=== PATIENT | female | born 1965 | race Caucasian/White ===

== ENCOUNTER 2018-05-07 23:57 | Inpatient (IN) | payer OTHER, BC ==
[~2018-05-07] VITALS: Ht 152.4 cm; Wt 100.8 kg
--- NOTE | ~2018-05-07 | HC ---
[facility] [place] [address] CONSULTATION Name: JAIDA DUMAS Kyle Room #: 418-P ADM IN M.R.#: [id number] Admission: 05/08/18 Attend Phys: Yasir Anaya MD Discharge: Date of : 61 Report #: [id number] THIS REPORT FOR: //name// CC: Yasir Koo DATE OF SERVICE: 05/10/2018 CHIEF COMPLAINT: Ulcerations, bilateral hips and history of calciphylaxis. HISTORY OF PRESENT ILLNESS: This is a 53-year-old female patient with a history of end-stage renal disease, who undergoes peritoneal dialysis. She has a history of ulcerations on bilateral lower extremities as well as both of her hips and the lower extremity ulcers have healed. 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 She has received topical care and some debridement. She has been receiving sodium thiosulfate 3 days per week. Overall, things have begun to improve, although her hips have been very slow to respond. The patient is unaware as to whether her parathyroid hormone level has been evaluated or whether she has been considered for parathyroidectomy at this time. The patient's reason for admission, has been nausea, vomiting and abdominal pain. She has not been to [facility] before but was brought here as this was the closest facility. ALLERGIES: Unknown. PAST MEDICAL HISTORY: Positive history of acute respiratory failure and/or colitis with C. difficile, pulmonary candidiasis, anemia, dialysis and type 2 diabetes mellitus. There is a reported history of antiphospholipid antibody syndrome, although the patient states she is unaware of this and that her ulcers have been specifically caused by calciphylaxis. SOCIAL HISTORY: Negative for alcohol or tobacco use. FAMILY HISTORY: Noncontributory. REVIEW OF SYSTEMS: CONSTITUTIONAL: The patient denies fever, chills or weight loss. NEUROLOGICAL: The patient denies focal weakness, numbness or weakness. EYES: The patient denies visual changes, redness or drainage. ENT: The patient denies earache, nasal drainage, sore throat. CARDIOVASCULAR: The patient denies chest pain, palpitation or diaphoresis. PULMONARY: The patient denies cough or shortness of breath. GASTROINTESTINAL: The patient has previously complained of nausea and vomiting, which is mostly improved at this time. She denies abdominal pain. ORTHOPEDIC: The patient complains of ulcerations on both hip areas as well as [facility] [address] [place] [address] CONSULTATION Name: JAIDA DUMAS Kyle Room #: 418-P [facility].#: [id number] Admission: 05/08/18 Attend Phys: Yasir Anaya MD Discharge: Date of : 61 Report #: [id number] previous ulcerations on her both lower extremities bilaterally. Other systems in a 14-point review of systems are negative. MEDICATIONS: Reviewed in her MAR. PHYSICAL EXAMINATION: VITAL SIGNS: At this time include pulse rate 88, respiration of 20, blood pressure 144/70 and temperature 98.4. GENERAL: This is a chronically ill-appearing female patient who appears to be in minimal distress. HEENT: Head is normocephalic and atraumatic. Nose and throat clear. NECK: Supple. LUNGS: Clear. HEART: . ABDOMEN: Bowel sounds present. Abdomen is obese, soft and nontender. EXTREMITIES: Examination of the lower extremities demonstrates diminished but palpable distal pulses. She has trace edema bilaterally. She has some scarring from previous ulcerations on both lower legs. She has ulcerations to both hip areas. They appear to have rolled edges, some granulation tissue is noted as well as some yellow fibrinous material. There is a little bit of undermining on the wound margins bilaterally. They are not overtly infected at this time. The periwound is slightly erythematous, more of inflammation than an infectious appearance. NEUROLOGICAL: The patient is alert and oriented and appropriate. Moving all 4 extremities spontaneously. LABORATORY DATA: Includes sodium 141, potassium 3.9, chloride 101, CO2 31, BUN 21, creatinine 4.0 and glucose 100. Calcium is 8.7, phosphorus is 5.3, albumin is 1.7 and total protein 8.5. Albumin is low at 1.7. White blood cell count 11.1 and hemoglobin 10.0. CLINICAL IMPRESSION: 1. Chronic ulceration to bilateral hips with a reported history of calciphylaxis per the patient's report, this was biopsy proven, the records are not available for my review at this time. 2. End-stage renal, requiring dialysis. 3. Anemia of chronic disease. 4. Severe protein-calorie malnutrition. RECOMMENDATIONS: At this point in time, in general, ulcerations due to calciphylaxis are best treated with topical silver based materials. It is also recommended that the debridement be avoided if at all possible due to pathergy associated with this condition. I think we will use topical silver alginate followed by ABD type secondary dressing to be changed on a daily basis and as needed. I would recommend that we continue with sodium thiosulfate as this has [facility] [address] [place] [address] CONSULTATION Name: JAIDA DUMAS Room #: 418-P ADM IN M.R.#: [id number] Admission: 05/08/18 Attend Phys: Yasir Anaya MD Discharge: Date of : 61 Report #: [id number] been shown to be of benefit in calciphylaxis. We will also check a parathyroid hormone level. If it is markedly elevated, then parathyroidectomy could be considered treatment option for the calciphylaxis as well. We will recommend ongoing nutritional support to maximize wound healing. All questions have been answered. I appreciate being asked to see her in consultation. By: 04 Berhane Mccartney MD /nt
[2018-05-07 23:58] VITALS: BP 167/91
[2018-05-08 00:19] LABS: HEMATOCRIT 30.6 % (37.0-47.0); MCHC 32.6 g/dL (28.0-37.0); RBC 3.22 mil/uL (4.20-5.00); RDW 18.9 % (10.5-14.5); WBC 11.1 thou/uL (4.0-11.0)
[2018-05-08 00:40] LABS: ANION GAP 11 mmol/L (7-16); BUN 14 mg/dL (7-18); CALCIUM 9.7 mg/dL (8.5-10.1); CHLORIDE 96 mmol/L (98-107); CO2 28 mmol/L (21-32); GLUCOSE 149 mg/dL (74-106); POTASSIUM 4.8 mmol/L (3.5-5.1); SODIUM 135 mmol/L (136-145)
[2018-05-08 00:45] LABS: ALBUMIN 2.3 g/dL (3.4-5.0); LIPASE 90 U/L (73-393); SGOT 30 U/L (15-37); SGPT 10 U/L (30-65); TOTAL BILIRUBIN 1.7 mg/dL (<0.1-1.0); TOTAL PROTEIN 8.5 g/dL (6.4-8.2); TROPONIN-I <0.06 ng/mL (<0.06)
[2018-05-08 02:36] LABS: INR 1.2; PROTIME 12.3 Seconds (9.3-11.4)
[2018-05-08 04:27] LABS: BF NUCLEATED CELLS 210; BF RBC 3503
[2018-05-08 04:28] LABS: CLARITY CLEAR; COLOR YELLOW; TOTAL VOLUME 40 mL
[2018-05-08 04:56] LABS: BF MACROPHAGE 31; BF NEUTROPHILS 13; SOURCE PERITONEAL
--- NOTE | 2018-05-08 08:47 | EKG ---
[address] [address] ELECTROCARDIOGRAM REPORT Name: PITERJAIDA C Room #: 170-6 ADM IN M.R.#: [id number] Admission: 05/08/18 Attend Phys: Yasir Anaya MD Discharge: Date of : 61 Report #: [id number] THIS REPORT FOR: //name// [facility] ED Test Date: 2018-05-08 Test Time: 00:32:29 Pat Name: JAIDA DUMAS Department: Room: 170 Gender: F [employer] Manager: SHANIQUE : 1965 Requested By: Rocio Conde Order Number: [id number] MD: Daniel Fuller Measurements Intervals [place]cles Rate: 85 P: 39 IN: 136 QRS: 97 QRSD: 94 T: 71 QT: 429 QTc: 511 Interpretive Statements Sinus rhythm Borderline right axis deviation Borderline low voltage, extremity leads No previous ECG available for comparison Electronically Signed On 05-08-2018 8:47:06 SERVER SYSTEMS ADMINISTRATOR by Daniel Fuller [email or web address] <ELECTRONICALLY SIGNED> By: Daniel Fuller MD 05/08/18 0847 0032 003 Daniel Fuller MD /LAURA
[2018-05-08 11:22] VITALS: BP 125/44
[2018-05-08 11:38] VITALS: BP 125/44
[2018-05-08] MEDS ORDERED: AMBIEN 5 MG TABL5 M1 PO (14:36)
[2018-05-08] MEDS ORDERED: TRAMADOL 50 MG50 MG PO (14:37)
[2018-05-08] MEDS ORDERED: ALBUTEROL2.5 MG/31 INH (14:37)
[2018-05-08] MEDS ORDERED: HYDROXYZINE HCL25 M1 PO (14:38)
[2018-05-08] MEDS ORDERED: MAPAP325 MG PO (14:45)
[2018-05-08] MEDS ORDERED: REQUIP2 MG PO (14:50)
[2018-05-08] MEDS ORDERED: ONDANSETRON HCL4 M2 PO (14:50)
[2018-05-08] MEDS ORDERED: REMERON15 MG PO (14:51)
[2018-05-08] MEDS ORDERED: PROTONIX40 M1 PO (14:51)
[2018-05-08] MEDS ORDERED: RENVELA800 MG PO (14:53)
[2018-05-08] MEDS ORDERED: ANTACID650 MG PO (14:53)
[2018-05-08] MEDS ORDERED: VITAMINC500 PO (14:54)
[2018-05-08] MEDS ORDERED: ZINC SULFATE220 MG PO (14:54)
[2018-05-08] MEDS ORDERED: TRAZODONE HCL50 MG PO (14:54)
[2018-05-08] MEDS ORDERED: HUMALOG100 UNIT/1 SUBQ (14:58)
[2018-05-08] MEDS ORDERED: CARVEDILOL3.125 MG PO (14:59)
[2018-05-08] MEDS ORDERED: ARANESP100 MCG/0. SUBQ (14:59)
[2018-05-08] MEDS ORDERED: BUSPIRONE HCL10 MG PO (14:59)
[2018-05-08] MEDS ORDERED: MELATONIN3 MG PO (15:00)
[2018-05-08 18:34] VITALS: BP 116/62
[2018-05-08] MEDS ORDERED: ACIDOPHILUS1 EAC4 PO (19:27)
[2018-05-08 20:00] VITALS: BP 104/19
[2018-05-09 00:40] VITALS: BP 79/25
[2018-05-09 01:00] VITALS: BP 80/40
[2018-05-09 04:10] VITALS: BP 169/82
[2018-05-09 04:13] VITALS: BP 77/13
[2018-05-09 07:15] VITALS: BP 116/18
[2018-05-09 11:35] LABS: ALBUMIN 1.7 g/dL (3.4-5.0); CALCIUM 8.7 mg/dL (8.5-10.1); PHOSPHORUS 5.3 mg/dL (2.5-4.9); POTASSIUM 3.9 mmol/L (3.5-5.1)
[2018-05-09 22:14] VITALS: BP 136/54
[2018-05-09 23:07] LABS: HAV IgM AB (ANTI-HAV IgM) Negative (Negative); HEPATITIS B SURFACE AG Negative (Negative); HEPATITIS C VIRUS AB 0.3 (0.0-0.9)
[2018-05-10 05:32] VITALS: BP 126/57
[2018-05-10 07:17] VITALS: BP 137/59
[2018-05-10 16:00] VITALS: BP 145/70
[2018-05-10 21:41] VITALS: BP 144/78
[2018-05-11 07:10] VITALS: BP 125/58
[2018-05-11 08:29] LABS: CALCIUM 8.6 mg/dL (8.5-10.1); CREATININE 3.7 mg/dL (0.6-1.0); PHOSPHORUS 4.3 mg/dL (2.5-4.9)
[2018-05-11 15:30] VITALS: BP 125/44
[2018-05-11 20:41] VITALS: BP 146/72
[2018-05-12 04:30] VITALS: BP 120/58
[2018-05-12 05:54] LABS: ALBUMIN 1.5 g/dL (3.4-5.0); CALCIUM 8.7 mg/dL (8.5-10.1); PHOSPHORUS 3.2 mg/dL (2.5-4.9); POTASSIUM 4.3 mmol/L (3.5-5.1)
[2018-05-12 05:56] LABS: CREATININE 2.9 mg/dL (0.6-1.0)
[2018-05-12 08:40] VITALS: BP 124/64
[2018-05-12 08:53] LABS: ABSOLUTE NEUTROPHILS 5.8 thou/uL (1.4-8.2); BASOPHILS 0.8 % (0.0-2.0); EOSINOPHILS 6.9 % (0.0-3.0); HEMATOCRIT 22.8 % (37.0-47.0); HEMOGLOBIN 7.4 gm/dL (12.0-15.0); LYMPHOCYTES 25.7 % (24.0-44.0); MCH 31.1 pg (26.0-34.0); MCHC 32.5 g/dL (28.0-37.0); MCV 95.7 fL (80.0-100.0); MONOCYTES 7.1 % (1.0-8.0); PLATELET COUNT 347 thou/uL (150-400); POLYS 59.5 % (36.0-66.0); RBC 2.38 mil/uL (4.20-5.00); RDW 18.7 % (10.5-14.5); WBC 9.7 thou/uL (4.0-11.0)
[2018-05-12 10:56] LABS: INR 1.2; PROTIME 12.6 Seconds (9.3-11.4)
[2018-05-12 15:32] VITALS: BP 109/46
[2018-05-12 19:20] VITALS: BP 116/54
[2018-05-13 04:00] VITALS: BP 116/57
[2018-05-13 07:25] VITALS: BP 143/77
--- NOTE | 2018-05-13 11:20 | HC ---
[facility] [place] [address] CONSULTATION Name: JAIDA DUMAS Kyle Room #: 418-P ADM IN M.R.#: [id number] Admission: 05/08/18 Attend Phys: Yasir Anaya MD Discharge: Date of : 61 Report #: [id number] THIS REPORT FOR: //name// CC: Yasir Koo DATE OF SERVICE: 05/09/2018 NEPHROLOGY CONSULTATION: REASON FOR CONSULTATION: End-stage renal disease. HISTORY OF PRESENT ILLNESS: This is a patient with longstanding diabetes mellitus and triopathy has end-stage renal disease, had previously been on peritoneal dialysis and now has been on hemodialysis 3 times or 4 times weekly. She has calciphylaxis, has been getting thiosulfate with her treatments and she has been at a rehab center. She developed abdominal pain, nausea, vomiting and bloating yesterday. She has ascites and had developed quite a bit of worsening ascites. Evaluation showed this to be unlikely to be bacterial peritonitis as judged by fluid cell count and differential. The patient was treated with antibiotics. Her pain is better. She is due for dialysis today. PAST MEDICAL HISTORY: She has the end-stage renal disease, diabetes with triopathy. She has a nonfunctioning PD catheter. She has had multiple previous surgeries including knee, back, both carpal tunnels and multiple rotator cuff surgeries in the past. FAMILY HISTORY: Positive for diabetes, hypertension, and end-stage renal disease. SOCIAL HISTORY: No cigarettes or alcohol, has not really been home in some time. REPORTED HOME MEDICATIONS: Include Ambien 5 mg at bedtime, tramadol p.r.n., AccuNeb inhaler, hydroxyzine p.r.n., Zofran p.r.n., Requip 2 mg b.i.d., Remeron 7.5 mg at bedtime, Protonix 40 mg daily, Renvela 800 mg with meals, bicarbonate 2 tablets b.i.d., trazodone 50 mg at bedtime, vitamin C 500 mg, insulin, Aranesp weekly, buspirone 15 mg t.i.d., carvedilol 3.125 mg b.i.d. REVIEW OF SYSTEMS: GENERAL: Aside from the abdominal pain with some vomiting, she has otherwise been feeling reasonably well. [facility] [address] [place] [address] CONSULTATION Name: JAIDA DUMAS Room #: 418[facility].#: [id number] Admission: 05/08/18 Attend Phys: Yasir Anaya MD Discharge: Date of : 61 Report #: [id number] EYES: She has had some difficulty with her vision. She has got some cataracts. ENT: Hearing okay, swallows okay. ENDOCRINE: Positive for diabetes. RESPIRATORY: No current shortness of breath or pleuritic pain, cough or hemoptysis. CARDIAC: Not having any chest pains currently. GASTROINTESTINAL: As above. GENITOURINARY: Makes very little urine. MUSCULOSKELETAL: No joint pains, etc. NEUROLOGIC: She has got the numbness in her feet. PHYSICAL EXAMINATION: GENERAL: This is a chronically ill-appearing woman. SKIN: Unremarkable. SKELETAL: Somewhat overweight. HEENT: Extraocular movements are full. Vision is intact. Hearing is intact. Mucous membranes are moist. NECK: Supple. CHEST: Clear to auscultation. HEART: Regular. ABDOMEN: Distended, slightly tender. EXTREMITIES: Show wounds with dressings on both lateral thighs. NEUROLOGIC: Grossly intact. LABORATORY DATA: The abdominal fluid cell count was 210 nucleated, only 13 neutrophils, 56 bands and 31 macrophages. The fluid was clear. Sodium 135, potassium 4.8, chloride 96, bicarbonate 28, creatinine 3. Alkaline phosphatase elevated at 247, albumin only 2.3. ASSESSMENT: 1. End-stage renal disease. We will proceed with dialysis through her fistula today. 2. Ascites. We will drain her ascitic fluid for comfort measures, give her some albumin to support her blood pressure and some saline to support her blood pressure. 3. Calciphylaxis. Continue on thiosulfate as before. I did not uncover her wounds, but I recommend a wound care consultation. 4. Obstructive sleep apnea, on BiPAP at night. 5. Diabetes mellitus with triopathy including neuropathy. 6. Nonfunctioning PD catheter. She was on PD and like PD. Her catheter has become malpositioned, possibly consideration towards repositioning or removing the catheter should be undertaken. <ELECTRONICALLY SIGNED> By: Baron Mace MD 05/13/18 1120 1135 0013 Baron Mace MD /nt
[2018-05-13] MEDS ORDERED: CYCLOBENZAPRINE5 MG PO (12:13)
[2018-05-13] MEDS ORDERED: GABAPENTIN 100100 MG PO (12:13)
[2018-05-15 12:08] LABS: CERULOPLASMIN 12.2 mg/dL (19.0-39.0)
[2018-05-15 13:09] LABS: MITOCHONDRIAL ANTIBODY 14.4 Units (0.0-20.0)
== END 2018-05-13 17:15 | DRG 432 ==
LOC: ER 23:57 → EROBS 05-08 04:56 → 4E 05-08 04:56
PROVIDERS: Emergency Medicine Emergency Medical Services; Internal Medicine Gastroenterology; Internal Medicine Nephrology; Student in an Organized Health Care Education/Training Program; ADMIT Internal Medicine
PROC: 0W9G3ZZ Drainage of Peritoneal Cavity, Percutaneous Approach (ICD-10-PCS; principal; 2018-05-08)
PROC: 3E1M39Z Irrigation of Peritoneal Cavity using Dialysate, Percutaneous Approach (ICD-10-PCS; 2018-05-09)
PROC: 3E1M39Z Irrigation of Peritoneal Cavity using Dialysate, Percutaneous Approach (ICD-10-PCS; 2018-05-12)
DX: K74.60 Unspecified cirrhosis of liver (principal); E43 Unspecified severe protein-calorie malnutrition; N18.6 End stage renal disease; J96.21 Acute and chronic respiratory failure with hypoxia; I12.0 Hypertensive chronic kidney disease with stage 5 chronic kidney disease or end stage renal disease; L97.129 Non-pressure chronic ulcer of left thigh with unspecified severity; L97.119 Non-pressure chronic ulcer of right thigh with unspecified severity; D68.61 Antiphospholipid syndrome; R18.8 Other ascites; Z68.41 Body mass index [BMI] 40.0-44.9, adult; K76.6 Portal hypertension; I85.10 Secondary esophageal varices without bleeding; T82.42XA Displacement of vascular dialysis catheter, initial encounter; D63.8 Anemia in other chronic diseases classified elsewhere; K72.90 Hepatic failure, unspecified without coma; I27.20 Pulmonary hypertension, unspecified; R16.1 Splenomegaly, not elsewhere classified; E11.22 Type 2 diabetes mellitus with diabetic chronic kidney disease; G47.33 Obstructive sleep apnea (adult) (pediatric); E66.01 Morbid (severe) obesity due to excess calories; E11.40 Type 2 diabetes mellitus with diabetic neuropathy, unspecified; E11.319 Type 2 diabetes mellitus with unspecified diabetic retinopathy without macular edema; D63.1 Anemia in chronic kidney disease; E11.622 Type 2 diabetes mellitus with other skin ulcer; Y83.8 Other surgical procedures as the cause of abnormal reaction of the patient, or of later complication, without mention of misadventure at the time of the procedure; E83.59 Other disorders of calcium metabolism; Z88.0 Allergy status to penicillin; Z88.6 Allergy status to analgesic agent; Z90.710 Acquired absence of both cervix and uterus; Z99.2 Dependence on renal dialysis; Z79.4 Long term (current) use of insulin; Z79.899 Other long term (current) drug therapy; Z86.718 Personal history of other venous thrombosis and embolism; Y92.89 Other specified places as the place of occurrence of the external cause
CPT/HCPCS: 10084; 32100; 33000